=== PATIENT | male | born 1960 | race Caucasian/White ===

== ENCOUNTER 2022-12-14 17:29 | Emergency (ER) | payer BC ==
[~2022-12-14] VITALS: Ht 170.2 cm; Wt 124.3 kg
[2022-12-14 17:34] VITALS: BP 93/56
--- NOTE | 2022-12-14 17:38 | NUR ---
GIVEN 200CC NS BY MEDICS, TO BED 3
--- NOTE | 2022-12-14 19:00 | NUR ---
BIAB FROM HOME C/O SYNCOPE, UNK AMOUNT OF TIME DOWN, FELL ON CONCRETE, DENIES HITTING HEAD. PER EMS PT FAMILY STATED THAT PT DRANK 4 BEERS AND SMOKED SOME MARIJUANA. PT DIAPHORETIC AND SYSTOLIC AT 80S AT HOME NKA PMH: DM2, SEIZURES, HTN
--- NOTE | 2022-12-14 20:00 | NUR ---
PT FAMILY IS OUTSIDE AND GAVE THE UPDATE FOR THE PATIENT TO .
[2022-12-14 20:08] LABS: BARBITURATE, URINE NEGATIVE ng/ml (NEG <=200); BENZODIAZEPINE, URINE NEGATIVE ng/mL (NEG <=200); CANNABINOID, URINE NEGATIVE ng/mL (NEG <=50); COCAINE, URINE NEGATIVE ng/mL (NEG <=300); OPIATE, URINE NEGATIVE ng/mL (NEG <=2000); PHENCYCLIDINE SCREEN,URINE NEGATIVE ng/mL (NEG <=25)
[2022-12-14 20:25] LABS: BASOPHILS % (AUTO) 0.4 % (0.0-2.0); EOSINOPHILS % (AUTO) 0.5 % (0.0-4.0); HEMATOCRIT 40.8 % (36-52); HEMOGLOBIN 13.9 g/dL (12.0-18.0); LYMPHOCYTES # (AUTO) 1.5 K/uL (2.0-11.5); LYMPHOCYTES % (AUTO) 19.2 % (20.5-51.1); MEAN CORPUSCULAR HEMOGLOBIN 29 pg (27-31); MEAN CORPUSCULAR HGB CONC 34 g/dL (33-37); MEAN CORPUSCULAR VOLUME 85.6 fL (80-94); MONOCYTES # (AUTO) 0.4 K/uL (0.8-1.0); NEUTROPHILS # (AUTO) 5.7 K/uL (1.8-7.7); NEUTROPHILS % (AUTO) 74.9 % (42.2-75.2); PLATELET COUNT (AUTO) 168 K/uL (140-450); RED BLOOD CELL COUNT(AUTO) 4.77 MIL/uL (4.20-6.10); RED CELL DISTRIBUTION WIDTH 12.8 % (11.6-13.7); WHITE BLOOD COUNT (AUTO) 7.7 K/uL (4.8-10.8)
--- NOTE | 2022-12-14 21:00 | NUR ---
2100 AT THE BEDSIDE NOW.
[2022-12-14] MEDS ORDERED: NACL 0.9% 1,000 ML IV ONE (21:10)
[2022-12-14 22:05] LABS: ALBUMIN 3.9 g/dL (3.4-5.0); ANION GAP 15.8 (8-16); ASPARTATE AMINOTRANSFERASE 22 U/L (15-37); CARBON DIOXIDE 23.9 mmol/L (21-32); CHLORIDE 108 mmol/L (98-107); CREATININE 1.2 mg/dL (0.6-1.3); GFR ARICAN-AMERICAN 79 mL/min (>90); GLUCOSE 130 mg/dL (74-106); POTASSIUM 4.7 mmol/L (3.5-5.1); SODIUM SERUM 143 mmol/L (136-145); TOTAL BILIRUBIN 0.2 mg/dL (0.0-1.0); UREA NITROGEN, BLOOD 16 mg/dL (7-18)
--- NOTE | 2022-12-14 22:57 | NUR ---
Patient discharged with v/s stable. Written and verbal after care instructions given and explained. Patient verbalized understanding. Ambulatory with steady gait. All questions addressed prior to discharge. Advised to follow up with PMD. PT LEFT WITH HIS BELONIGINGS.
[2022-12-14 23:15] VITALS: BP 129/69
== END 2022-12-14 22:57 | disposition home or self-care (01) ==
LOC: MED 17:29
DX: R55 Syncope and collapse (principal); R53.1 Weakness; M79.641 Pain in right hand; E11.9 Type 2 diabetes mellitus without complications; I10 Essential (primary) hypertension; Z86.69 Personal history of other diseases of the nervous system and sense organs; Z90.49 Acquired absence of other specified parts of digestive tract
CPT/HCPCS: 36415; 70450; 71045; 73130; 80053; 80305; 84484; 85025; 85379; 93005; 96360; 99285; G0482; J7030; Q0092

== ENCOUNTER → 2023-02-16 | Emergency (ER) | payer BC ==
[~2023-02-16] VITALS: Ht 175.3 cm; Wt 131.5 kg
[~2023-02-16] MED LIST: CYCL-711 PO; CYCLOBENZAPRINE 10 MG TAB PO ONE; KETOROLAC 30 MG/ML VIAL IM ONE; NAPR-54 PO
[2023-02-16 18:29] VITALS: BP 129/90
[2023-02-16 19:00] VITALS: BP 129/90
--- NOTE | 2023-02-16 19:00 | NUR ---
Patient is a 62-year-old male with a past medical history of diabetes, hypertension, and seizure disorder presenting to the ED reporting 4-day history of left shoulder pain. Patient explains that 4 days ago after pulling a heavy garbage can he started to experience left shoulder pain which has since been worsening. He describes shoulder pain as a burning-like sensation.
--- NOTE | 2023-02-16 20:00 | NUR ---
pt is at the lobby
--- NOTE | 2023-02-16 21:09 | NUR ---
Patient discharged with v/s stable. Written and verbal after care instructions given and explained. Patient alert, oriented and verbalized understanding of instructions. Ambulatory with steady gait. All questions addressed prior to discharge. ID band removed. Patient advised to follow up with PMD. Rx of flexeril and naprosyn given. Opportunity to ask questions provided and answered. Dr. Reed orders reinforced
== END | disposition home or self-care (01) ==
LOC: MED 17:58
DX: M25.512 Pain in left shoulder (principal); E11.9 Type 2 diabetes mellitus without complications; I10 Essential (primary) hypertension; E03.9 Hypothyroidism, unspecified; Z79.4 Long term (current) use of insulin; Z79.899 Other long term (current) drug therapy
CPT/HCPCS: 73030; 96374; 99283; J1885